=== PATIENT | male | born 1995 | race Caucasian/White ===

== ENCOUNTER 2017-03-16 22:48 | Emergency (ER) | payer OTHER ==
[~2017-03-16] VITALS: Ht 175.3 cm; Wt 65.9 kg
[2017-03-16 22:55] VITALS: BP 116/75; RESP 16; O2SAT 99
--- NOTE | 2017-03-16 23:04 | ED.REPORT ---
HPI-URI / Cough / Cold Date of Service March 16, 2017 ED Provider: Sav Alexandre MD The patient is a healthy 22 year old male who presents to the ED reporting a sore throat onset two days ago. The patient also reports left ear pain and cough. He denies other symptoms. The patient has a close contact who tested positive for strep throat yesterday. Nursing Notes Stated Complaint: THROAT Chief Complaint: ENT & Mouth Nursing Notes Reviewed: Yes ([employer], meds not reconciled) Allergies: Coded Allergies: amoxicillin (Verified Allergy, Mild, Hives, 03/16/17) Scheduled Cephalexin (Cephalexin) 500 Mg Tablet 500 MG PO BID General Time Seen by MD: 23:01 Chief Complaint Sore throat Hx Obtained From: Patient Arrived By: Walk-in Onset Occurred: 2 days ago Symptom Duration: Since onset Location: : Ear left: Tonsil left: Tonsil right Quality: Painful Severity: Current: Moderate Severity: Maximum: Moderate Pertinent Negative: Relieved by nothing Context: Immunization Status General: Unknown Recent Healthcare: No recent doctor visit Past Medical History Past Medical History None reported Past Surgical History None reported Smoking History Current Every Day Smoker Social History Other Social History: Good social support, Lives with children Ambulatory Status Independent Review of Systems Constitutional: Denies: Fever Ears / Nose / Throat: Reports: Earache left, Sore throat Respiratory: Reports: Non-productive cough, Denies: Shortness of breath GI: Denies: Diarrhea, Vomiting Complete sys rev & neg: except as marked. Physical Exam Initial Vital Signs Vital Signs (First) Date Time Temp Pulse Resp B/P Pulse Ox O2 Delivery O2 Flow Rate FiO2 03/16/17 22:55 36.4 77 16 116/75 99 Room Air Initial VS: Reviewed, Vital signs normal Head / Eyes: Atraumatic, Normocephalic Cardiovascular: Regular rate & rhythm, Heart sounds normal Skin: Warm, Dry, No cyanosis Neurologic: Alert, Oriented, Nonfocal Psychiatric: Mood/affect normal, Behavior normal, Normal thought content General/Constitutional: Awake, Alert, No acute distress ENT: Airway patent, Mucous membranes moist, Tympanic membs NL, Ext aud canal NL Pharynx / Tonsils / Uvula: Positive: Pharyngeal erythema, Negative: Tonsillar exudate L, Tonsillar exudate R Respiratory / Chest: Breath sounds NL, Breath sounds = bilat, No respiratory distress Neck: Supple, Full range of motion, No adenopathy Re-Eval/Medical Decision Med Decision/Clinical Course This is a 22-year-old smoking male who presents with a sore throat. The mother was diagnosed with strep pharyngitis, 2 children diagnosed with pharyngitis today, the patient also has symptoms. On exam he is mild pharyngeal erythema, no cervical adenopathy and absence of cough. He otherwise appears well. The multitude of family members ill with strep throat, think her treatment is appropriate. Due to the history of amoxicillin allergy patient's being treated with recommended cephalexin twice a day. He received a first dose here, and a prescription for additional doses to fill at home. he is discharged in stable condition Source of Hx: Old records Re-Evaluation/Progress : Time of Eval: 23:30 Patient Status: Condition improved Re-Evaluation/Progress Note: Discussed with patient diagnosis and plan for discharge. Follow-up and return to the ER instructions given. Patient agrees with plan for care and all questions were addressed. Differential Diagnosis: Positive: Pharyngitis, streptococca, Negative: Allergic reaction, Asthma exacerbation, Bronchitis, Otitis media left, Pneumonia, community acq, Seasonal allergy Counseled Regarding: Diagnosis, Need for follow-up, When/why to return to ED Discharge & Departure Impression: Primary Impression: Pharyngitis Pharyngitis/tonsillitis etiology: streptococcus Qualified Code: J02.0 - Streptococcal pharyngitis Disposition: Home Discharge Condition All VS Reviewed: Yes Condition: Improved Additional Instructions: 1. Take antibiotic cephalexin 500 mg twice a day for 10 days. 2. Ibuprofen 400-800 mg 3 times a day as needed for soreness, pain, or fever. 3. Drink small frequent sips of fluids, advance diet as tolerated 4. Return if new or worsening symptoms Referrals: [facility] Scribe Attestation Portions of this note were transcribed by Valeri Sequeira. I, Dr. Alexandre, personally performed the history, physical exam, and medical decision-making; I reviewed and confirmed the accuracy of the information in the transcribed note. Signed by: Carlos Eduardo Enriquez, 03/16/2017, 23:55 copies to: [facility] Sav Alexandre MD March 16, 2017 23:04 VALERI SEQUEIRA March 16, 2017 23:12
[2017-03-16] MEDS ORDERED: CEPH500T PO (23:29)
== END 2017-03-16 23:37 | disposition home or self-care (01) ==
LOC: SED 22:48
DX: J02.0 Streptococcal pharyngitis (principal); H92.02 Otalgia, left ear; F17.200 Nicotine dependence, unspecified, uncomplicated; Z88.1 Allergy status to other antibiotic agents